=== PATIENT | female | born 1940 | race Caucasian/White ===

== ENCOUNTER 2025-01-16 13:00 | Inpatient (IN) | payer MEDICAID ==
[~2025-01-16] VITALS: Ht 152.4 cm; Wt 57.6 kg
[~2025-01-16 13:00] MED LIST: FURO20TA4 PO; GABA-529 PO; METO-539 PO; POLY17PO43 PO; SENN1TAB35 PO; WARF5TAB8 PO
[2025-01-16 13:27] VITALS: O2SAT 99
[2025-01-16 15:55] LABS: BASOPHILS % 0.2 % (0.0-2.0); EOSINOPHILS % 0.1 % (0.0-5.0); HEMATOCRIT. 33.9 % (36.0-48.0); HEMOGLOBIN. 11.1 g/dL (12.0-16.0); LYMPHOCYTES % 12.5 % (20.0-50.0); MEAN PLATELET VOLUME 8.6 fl (7.4-10.4); MONOCYTES % 9.3 % (2.0-8.0); NEUTROPHILS % 77.9 % (40.0-76.0); PLATELET 188 x1000/uL (130-400); RED BLOOD CELL COUNT 3.75 mill/uL (4.2-5.4); RED CELL DISTRIBUTION WIDTH 15.7 % (11.6-14.6)
[2025-01-16 16:08] LABS: CREATININE 0.8 mg/dL (0.6-1.0)
[2025-01-16 16:09] LABS: UREA NITROGEN BLOOD 11 mg/dL (9-23)
[2025-01-16 16:52] LABS: PROTEIN TOTAL 6.7 g/dL (6.0-8.3)
[2025-01-16 16:53] LABS: TROPONIN I HIGH SENSITIVITY 222 ng/L (3.0-34)
[2025-01-16 16:54] LABS: ASPARTATE AMINOTRANSFERASE 28 IU/L (<34); BILIRUBIN DIRECT 0.3 mg/dL (<=3.0); BILIRUBIN TOTAL 0.8 mg/dL (0.1-1.0)
[2025-01-16] MEDS ORDERED: POTASSIUM CHLORIDE 20MEQ TABLET SR PO PRN (20:45)
[2025-01-16] MEDS ORDERED: IPRATROPIUM/ALBUTEROL 0.5-3(2.5)MG/3ML NEB HHN PRN (20:45)
[2025-01-16] MEDS ORDERED: MAGNESIUM/ALUMINUM HYDROXIDE/SIMETHICONE 30ML UDC PO PRN (20:45)
[2025-01-16] MEDS ORDERED: CLONIDINE 0.1MG TABLET PO PRN (20:45)
[2025-01-16 20:46] LABS: GLUCOSE URINE NEGATIVE (NEGATIVE); KETONES URINE TRACE (NEGATIVE); LEUKOCYTE ESTERASE URINE TRACE (NEGATIVE); NITRITE URINE NEGATIVE (NEGATIVE); OCCULT BLOOD URINE TRACE (NEGATIVE); PH URINE 5.0 (4.5-8.0); PROTEIN URINE 1+ (NEGATIVE); SPECIFIC GRAVITY URINE 1.038 (1.005-1.030); UROBILINOGEN URINE 1.0 E.U./dL (0.2-1.0)
[2025-01-16] MEDS: HYDROCODONE/ACETAMINOPHEN 5/325MG TABLET PO PRN (21:41)
[2025-01-16 21:46] VITALS: BP 119/65; PULSE 86; RESP 18; TEMP 36.696
[2025-01-16 22:05] LABS: CLARITY URINE HAZY (CLEAR); COLOR URINE YELLOW (YELLOW)
[2025-01-16 22:06] LABS: RBC URINE NONE SEEN /hpf (0-2); WBC URINE 0-2 /hpf (0-2)
[2025-01-16 22:07] LABS: BACTERIA URINE 1+; CALCIUM OXALATE CRYSTALS URINE 1+ /lpf; SQUAMOUS EPITHELIAL CELL URINE 1+ /lpf (RARE/1+)
[2025-01-16 22:08] LABS: HYALINE CASTS URINE 0-5 /lpf; MUCUS URINE TRACE /lpf (< = 2+)
[2025-01-16 22:35] LABS: TROPONIN I HIGH SENSITIVITY 245 ng/L (3.0-34)
[2025-01-17] VITALS: BP 116/63; PULSE 63; RESP 18; TEMP 36.7; O2SAT 98
[2025-01-17 04:00] VITALS: BP 111/61; PULSE 62; RESP 18; TEMP 36.8; O2SAT 98
[2025-01-17 06:24] LABS: BASOPHILS % 0.3 % (0.0-2.0); EOSINOPHILS % 0.1 % (0.0-5.0); HEMATOCRIT. 29.5 % (36.0-48.0); HEMOGLOBIN. 9.9 g/dL (12.0-16.0); LYMPHOCYTES % 14.3 % (20.0-50.0); MEAN PLATELET VOLUME 9.2 fl (7.4-10.4); MONOCYTES % 9.0 % (2.0-8.0); NEUTROPHILS % 76.3 % (40.0-76.0); PLATELET 163 x1000/uL (130-400); RED BLOOD CELL COUNT 3.38 mill/uL (4.2-5.4); RED CELL DISTRIBUTION WIDTH 15.4 % (11.6-14.6)
[2025-01-17 06:34] LABS: CREATININE 0.7 mg/dL (0.6-1.0); UREA NITROGEN BLOOD 13 mg/dL (9-23)
[2025-01-17 06:36] LABS: PHOSPHORUS 2.9 mg/dL (2.5-4.9)
[2025-01-17 08:00] VITALS: BP 110/48; PULSE 77; RESP 18; TEMP 36.8; O2SAT 96
[2025-01-17] MEDS: ENOXAPARIN 40MG/0.4ML SYR SUBCUT SCH (09:02)
[2025-01-17 12:00] VITALS: BP 110/77; PULSE 73; RESP 18; TEMP 37.3; O2SAT 95
[2025-01-17 16:00] VITALS: BP 132/58; PULSE 69; RESP 16; TEMP 36.8; O2SAT 98
[2025-01-17 20:00] VITALS: BP 107/56; PULSE 83; RESP 20; TEMP 36.9; O2SAT 96
[2025-01-17] MEDS: CEFTRIAXONE 1GM/50ML 50 ML IV SCH (22:41)
[2025-01-17] MEDS: AZITHROMYCIN 500MG/250ML 250 ML IV SCH (23:36)
[2025-01-18] VITALS: BP 100/70; PULSE 80; RESP 20; TEMP 36.9; O2SAT 98
[2025-01-18] MEDS: MAGNESIUM 2 G PREMIX 50 ML IV NR (02:23)
[2025-01-18 04:00] VITALS: BP 108/77; PULSE 77; RESP 20; TEMP 36.9; O2SAT 98
[2025-01-18 06:44] LABS: UREA NITROGEN BLOOD 13 mg/dL (9-23)
[2025-01-18 06:45] LABS: CREATININE 0.7 mg/dL (0.6-1.0)
[2025-01-18 06:46] LABS: ASPARTATE AMINOTRANSFERASE 22 IU/L (<34); PROTEIN TOTAL 6.3 g/dL (6.0-8.3)
[2025-01-18 06:47] LABS: BILIRUBIN DIRECT 0.3 mg/dL (<=3.0); PHOSPHORUS 2.2 mg/dL (2.5-4.9)
[2025-01-18 06:48] LABS: BILIRUBIN TOTAL 0.8 mg/dL (0.1-1.0)
[2025-01-18 07:16] LABS: HEMATOCRIT. 30.9 % (36.0-48.0); HEMOGLOBIN. 10.3 g/dL (12.0-16.0); MEAN PLATELET VOLUME 9.6 fl (7.4-10.4); PLATELET 175 x1000/uL (130-400); RED BLOOD CELL COUNT 3.52 mill/uL (4.2-5.4); RED CELL DISTRIBUTION WIDTH 15.6 % (11.6-14.6)
[2025-01-18 08:00] VITALS: BP 103/60; PULSE 72; RESP 18; TEMP 37.8; O2SAT 96
[2025-01-18 08:28] LABS: INR 4.1
[2025-01-18 12:00] VITALS: BP 122/73; PULSE 62; RESP 18; TEMP 36.3; O2SAT 99
[2025-01-18] MEDS ORDERED: POLYETHYLENE GLYCOL 3350 (17GM) 1 DOSE PACK PO PRN (13:45)
[2025-01-18] MEDS ORDERED: NALOXONE HCL 0.4MG/ML VIAL IV PRN (14:15)
[2025-01-18 16:00] VITALS: BP 132/54; PULSE 63; RESP 18; TEMP 36.3; O2SAT 96
[2025-01-18 16:41] LABS: LYMPHOCYTES % MANUAL 7.0 % (20.0-60.0); MONOCYTES % MANUAL 2.0 % (2.0-8.0); NEUTROPHILS % MANUAL 91.0 % (45.0-75.0); PLATELET ESTIMATE NORMAL
[2025-01-18 20:00] VITALS: BP 107/52; PULSE 81; RESP 18; TEMP 36.5; O2SAT 95
[2025-01-18] MEDS ORDERED: SENNOSIDES/DOCUSATE SOD 8.6/50MG TABLET PO PRN (21:00)
[2025-01-18] MEDS: METOPROLOL TARTRATE 50MG TABLET PO SCH (21:00)
[2025-01-18] MEDS: FUROSEMIDE 20MG TABLET PO SCH (21:14)
[2025-01-18] MEDS: GABAPENTIN 100MG CAPSULE PO SCH (21:15)
[2025-01-18] MEDS: DOCUSATE SODIUM 100MG CAPSULE PO PRN (22:19)
[2025-01-19] VITALS: BP 110/59; PULSE 60; RESP 18; TEMP 36.4; O2SAT 99
[2025-01-19 03:25] LABS: CLARITY URINE CLEAR (CLEAR); COLOR URINE YELLOW (YELLOW); GLUCOSE URINE NEGATIVE (NEGATIVE); KETONES URINE NEGATIVE (NEGATIVE); LEUKOCYTE ESTERASE URINE NEGATIVE (NEGATIVE); NITRITE URINE NEGATIVE (NEGATIVE); OCCULT BLOOD URINE 1+ (NEGATIVE); PH URINE 5.0 (4.5-8.0); PROTEIN URINE NEGATIVE (NEGATIVE); SPECIFIC GRAVITY URINE 1.011 (1.005-1.030); UROBILINOGEN URINE 0.2 E.U./dL (0.2-1.0)
[2025-01-19 04:00] VITALS: BP 128/54; PULSE 55; RESP 18; TEMP 36.4; O2SAT 93
[2025-01-19 04:44] LABS: BACTERIA URINE TRACE; SQUAMOUS EPITHELIAL CELL URINE 1+ /lpf (RARE/1+)
[2025-01-19 04:45] LABS: FINE GRANULAR CASTS URINE 0-5 /lpf; RBC URINE 0-2 /hpf (0-2); WBC URINE NONE SEEN /hpf (0-2)
[2025-01-19 08:00] VITALS: BP 112/50; PULSE 59; RESP 18; TEMP 36.7; O2SAT 94
[2025-01-19] MEDS: ENOXAPARIN 30MG/0.3ML SYR SUBCUT SCH (09:04)
[2025-01-19 12:00] VITALS: BP 107/50; PULSE 71; RESP 18; TEMP 36.6; O2SAT 95
[2025-01-19 14:13] LABS: HEMATOCRIT. 30.7 % (36.0-48.0); HEMOGLOBIN. 10.1 g/dL (12.0-16.0); MEAN PLATELET VOLUME 9.6 fl (7.4-10.4); PLATELET 165 x1000/uL (130-400); RED BLOOD CELL COUNT 3.50 mill/uL (4.2-5.4); RED CELL DISTRIBUTION WIDTH 15.2 % (11.6-14.6)
[2025-01-19 14:23] LABS: CREATININE 0.8 mg/dL (0.6-1.0); UREA NITROGEN BLOOD 16 mg/dL (9-23)
[2025-01-19 14:24] LABS: PROTEIN TOTAL 6.0 g/dL (6.0-8.3)
[2025-01-19 14:25] LABS: ASPARTATE AMINOTRANSFERASE 35 IU/L (<34); PHOSPHORUS 2.6 mg/dL (2.5-4.9)
[2025-01-19 14:26] LABS: BILIRUBIN TOTAL 0.6 mg/dL (0.1-1.0); TROPONIN I HIGH SENSITIVITY 244 ng/L (3.0-34)
[2025-01-19 16:00] VITALS: BP 107/57; PULSE 81; RESP 18; TEMP 36.5; O2SAT 95
[2025-01-19 17:01] LABS: BAND% 1.0 % (1.0-6.0); EOSINOPHILS % MANUAL 1.0 % (0.0-5.0); LYMPHOCYTES % MANUAL 5.0 % (20.0-60.0); MONOCYTES % MANUAL 6.0 % (2.0-8.0); NEUTROPHILS % MANUAL 87.0 % (45.0-75.0); PLATELET ESTIMATE NORMAL
[2025-01-19] MEDS: VANCOMYCIN 750MG PREMIX 150 ML IV SCH (19:49)
[2025-01-19 20:00] VITALS: BP 105/52; PULSE 72; RESP 17; TEMP 36.4; O2SAT 96
[2025-01-19] MEDS: DOXYCYCLINE 100MG/100ML 100 ML IV SCH (22:42)
[2025-01-20] VITALS: BP 120/62; PULSE 87; RESP 19; TEMP 36.7; O2SAT 99
[2025-01-20] MEDS: ONDANSETRON HCL 4MG/2ML INJ IV PRN (00:02)
[2025-01-20 04:00] VITALS: PULSE 68; RESP 17; TEMP 36.6; O2SAT 99
[2025-01-20 08:00] VITALS: BP 112/64; PULSE 66; RESP 18; TEMP 36.6; O2SAT 97
[2025-01-20 08:50] LABS: INFLUENZA TYPE A Presumptive Negative (Pres. Neg.); INFLUENZA TYPE B Presumptive Negative (Pres. Neg.)
[2025-01-20 12:00] VITALS: BP 125/54; PULSE 62; RESP 18; TEMP 36.5; O2SAT 99
[2025-01-20 16:00] VITALS: BP 116/59; PULSE 61; RESP 18; TEMP 36.9; O2SAT 98
[2025-01-20 17:33] LABS: TRIGLYCERIDE 68.0 mg/dL (0-150)
[2025-01-20 17:34] LABS: LDL CHOLESTEROL 49.0 mg/dL (5-100)
[2025-01-20 17:35] LABS: CREATINE KINASE MB FRACTION < 0.5 ng/mL (0.5-3.6)
[2025-01-20 17:36] LABS: TROPONIN I HIGH SENSITIVITY 132 ng/L (3.0-34)
[2025-01-20 17:38] LABS: T4 FREE 1.39 ng/dL (0.89-1.76)
[2025-01-20 18:55] LABS: INR 1.6
[2025-01-20 20:00] VITALS: BP 113/45; PULSE 68; RESP 18; TEMP 36.5; O2SAT 94
[2025-01-20] MEDS: WARFARIN SODIUM 2.5MG TABLET PO SCH (21:09)
[2025-01-21] VITALS: BP 115/51; PULSE 60; RESP 18; TEMP 36.4; O2SAT 94
[2025-01-21 00:41] LABS: BASOPHILS % 0.7 % (0.0-2.0); EOSINOPHILS % 0.5 % (0.0-5.0); HEMATOCRIT. 31.0 % (36.0-48.0); HEMOGLOBIN. 10.1 g/dL (12.0-16.0); LYMPHOCYTES % 9.8 % (20.0-50.0); MEAN PLATELET VOLUME 9.3 fl (7.4-10.4); MONOCYTES % 8.3 % (2.0-8.0); NEUTROPHILS % 80.7 % (40.0-76.0); PLATELET 183 x1000/uL (130-400); RED BLOOD CELL COUNT 3.51 mill/uL (4.2-5.4); RED CELL DISTRIBUTION WIDTH 15.2 % (11.6-14.6)
[2025-01-21 00:55] LABS: CREATINE KINASE MB FRACTION < 0.5 ng/mL (0.5-3.6)
[2025-01-21 01:03] LABS: TROPONIN I HIGH SENSITIVITY 121 ng/L (3.0-34)
[2025-01-21 04:00] VITALS: BP 105/57; PULSE 60; RESP 17; TEMP 36.6; O2SAT 96
[2025-01-21 08:09] LABS: BASOPHILS % 0.2 % (0.0-2.0); EOSINOPHILS % 0.7 % (0.0-5.0); HEMATOCRIT. 29.6 % (36.0-48.0); HEMOGLOBIN. 9.8 g/dL (12.0-16.0); LYMPHOCYTES % 12.0 % (20.0-50.0); MEAN PLATELET VOLUME 9.2 fl (7.4-10.4); MONOCYTES % 8.8 % (2.0-8.0); NEUTROPHILS % 78.3 % (40.0-76.0); PLATELET 195 x1000/uL (130-400); RED BLOOD CELL COUNT 3.39 mill/uL (4.2-5.4); RED CELL DISTRIBUTION WIDTH 15.2 % (11.6-14.6)
[2025-01-21 08:10] VITALS: BP 104/62; PULSE 66; RESP 18; TEMP 36.8; O2SAT 97
[2025-01-21 08:22] LABS: CREATININE 0.7 mg/dL (0.6-1.0)
[2025-01-21 08:23] LABS: UREA NITROGEN BLOOD 16 mg/dL (9-23)
[2025-01-21 08:25] LABS: CREATINE KINASE MB FRACTION < 0.5 ng/mL (0.5-3.6)
[2025-01-21 08:28] LABS: TROPONIN I HIGH SENSITIVITY 102 ng/L (3.0-34)
[2025-01-21 08:37] LABS: INR 1.4
[2025-01-21] MEDS: POLYETHYLENE GLYCOL 3350 (17GM) 1 DOSE PACK PO SCH (08:59)
[2025-01-21] MEDS: ENOXAPARIN 60MG/0.6ML SYR SUBCUT SCH (10:05)
[2025-01-21] MEDS ORDERED: BACLOFEN 10MG TABLET PO PRN (11:00)
[2025-01-21] MEDS: LIDOCAINE 5% PATCH TOP SCH (11:45)
[2025-01-21 12:10] VITALS: BP 118/54; PULSE 66; RESP 18; TEMP 36.6; O2SAT 97
[2025-01-21 16:30] VITALS: BP 110/48; PULSE 64; RESP 18; TEMP 38.2; O2SAT 96
[2025-01-21] MEDS: GUAIFENESIN-DM 200MG-20MG/10ML UDC PO PRN (17:19)
[2025-01-21] MEDS: BENZONATATE 100MG CAPSULE PO PRN (17:19)
[2025-01-21] MEDS: ACETAMINOPHEN 325MG TABLET PO PRN (17:19)
[2025-01-21] MEDS ORDERED: WARFARIN SODIUM 5MG TABLET PO SCH (18:00)
[2025-01-21 20:00] VITALS: BP 125/99; PULSE 59; RESP 16; TEMP 35.9; O2SAT 97
[2025-01-22] VITALS: BP 123/50; PULSE 59; RESP 16; TEMP 36.6; O2SAT 96
[2025-01-22 04:00] VITALS: BP 121/65; PULSE 59; RESP 16; TEMP 35.8; O2SAT 95
[2025-01-22 08:04] VITALS: BP 116/64; PULSE 60; RESP 18; TEMP 36.8; O2SAT 95
[2025-01-22 08:23] LABS: BASOPHILS % 0.2 % (0.0-2.0); EOSINOPHILS % 0.5 % (0.0-5.0); HEMATOCRIT. 29.3 % (36.0-48.0); HEMOGLOBIN. 9.9 g/dL (12.0-16.0); LYMPHOCYTES % 7.8 % (20.0-50.0); MEAN PLATELET VOLUME 9.3 fl (7.4-10.4); MONOCYTES % 7.4 % (2.0-8.0); NEUTROPHILS % 84.1 % (40.0-76.0); PLATELET 201 x1000/uL (130-400); RED BLOOD CELL COUNT 3.38 mill/uL (4.2-5.4); RED CELL DISTRIBUTION WIDTH 15.3 % (11.6-14.6)
[2025-01-22 08:29] LABS: INR 1.3
[2025-01-22 09:02] LABS: CREATININE 0.7 mg/dL (0.6-1.0)
[2025-01-22 09:04] LABS: UREA NITROGEN BLOOD 18 mg/dL (9-23)
[2025-01-22 12:10] VITALS: BP 104/56; PULSE 60; RESP 18; TEMP 36.6; O2SAT 98
[2025-01-22 16:10] VITALS: BP 128/66; PULSE 62; RESP 18; TEMP 36.4; O2SAT 99
[2025-01-22] MEDS: VANCOMYCIN 1G PREMIX 200 ML IV SCH (17:35)
[2025-01-22 20:00] VITALS: BP 114/48; PULSE 66; RESP 17; TEMP 36.5; O2SAT 99
[2025-01-23] VITALS: BP 152/62; PULSE 60; RESP 18; TEMP 36.6; O2SAT 99
[2025-01-23 04:00] VITALS: BP 134/55; PULSE 60; RESP 18; TEMP 36.5; O2SAT 99
[2025-01-23 06:49] LABS: BASOPHILS % 0.4 % (0.0-2.0); EOSINOPHILS % 0.4 % (0.0-5.0); HEMATOCRIT. 29.6 % (36.0-48.0); HEMOGLOBIN. 10.0 g/dL (12.0-16.0); LYMPHOCYTES % 13.8 % (20.0-50.0); MEAN PLATELET VOLUME 9.1 fl (7.4-10.4); MONOCYTES % 7.7 % (2.0-8.0); NEUTROPHILS % 77.7 % (40.0-76.0); PLATELET 232 x1000/uL (130-400); RED BLOOD CELL COUNT 3.44 mill/uL (4.2-5.4); RED CELL DISTRIBUTION WIDTH 15.0 % (11.6-14.6)
[2025-01-23 07:00] LABS: INR 1.2
[2025-01-23 07:32] LABS: CREATININE 0.6 mg/dL (0.6-1.0)
[2025-01-23 07:33] LABS: UREA NITROGEN BLOOD 16 mg/dL (9-23)
[2025-01-23 08:00] VITALS: BP 132/53; PULSE 61; RESP 18; TEMP 36.6; O2SAT 99
[2025-01-23 12:00] VITALS: BP 126/44; PULSE 61; RESP 18; TEMP 36.6; O2SAT 97
[2025-01-23 16:00] VITALS: BP 121/52; PULSE 64; RESP 18; TEMP 36.6; O2SAT 97
[2025-01-23 20:00] VITALS: BP 133/67; PULSE 78; RESP 18; TEMP 37.1; O2SAT 97
[2025-01-24] VITALS: BP 128/60; RESP 20; TEMP 36.9; O2SAT 98
[2025-01-24 04:00] VITALS: BP 139/66; PULSE 82; RESP 18; TEMP 36.9; O2SAT 98
[2025-01-24 08:00] VITALS: BP 133/69; PULSE 57; RESP 13; TEMP 36.7; O2SAT 99
[2025-01-24 08:23] LABS: CREATININE 0.6 mg/dL (0.6-1.0); UREA NITROGEN BLOOD 13 mg/dL (9-23)
[2025-01-24 08:29] LABS: BASOPHILS % 0.2 % (0.0-2.0); EOSINOPHILS % 0.2 % (0.0-5.0); HEMATOCRIT. 30.0 % (36.0-48.0); HEMOGLOBIN. 10.2 g/dL (12.0-16.0); INR 1.1; LYMPHOCYTES % 11.7 % (20.0-50.0); MEAN PLATELET VOLUME 8.4 fl (7.4-10.4); MONOCYTES % 10.3 % (2.0-8.0); NEUTROPHILS % 77.6 % (40.0-76.0); PLATELET 244 x1000/uL (130-400); RED BLOOD CELL COUNT 3.47 mill/uL (4.2-5.4); RED CELL DISTRIBUTION WIDTH 15.0 % (11.6-14.6)
[2025-01-24] MEDS ORDERED: LIDOCAINE HCL 1% 10 MG/ML 10ML VIAL ONE (10:17)
[2025-01-24 12:00] VITALS: BP 121/88; PULSE 69; RESP 15; TEMP 36.8; O2SAT 97
[2025-01-24 16:00] VITALS: BP 130/74; PULSE 76; RESP 14; TEMP 36.7; O2SAT 98
[2025-01-24 20:00] VITALS: BP 142/81; PULSE 97; RESP 20; TEMP 36.8; O2SAT 99
[2025-01-25] VITALS: BP 139/80; PULSE 82; RESP 20; TEMP 37; O2SAT 97
[2025-01-25 04:00] VITALS: BP_SYST 138; BP_SYST 143; BP_DIAS 63; BP_DIAS 77; PULSE 89; PULSE 90; RESP 20; TEMP 36.9; TEMP 37; O2SAT 98
[2025-01-25 08:00] VITALS: BP 138/64; PULSE 58; RESP 17; TEMP 36.6; O2SAT 97
[2025-01-25] MEDS ORDERED: TETRACAINE/BENZOCAINE/BUTAMBEN 20 GM SPRAY MM ONE (10:31)
[2025-01-25] MEDS ORDERED: LIDOCAINE 2% 6ML GLYDO ONE (10:33)
[2025-01-25] MEDS ORDERED: FENTANYL CITRATE/PF 50MCG/ML 2ML VIAL ONE (14:02)
[2025-01-25] MEDS ORDERED: MIDAZOLAM HCL 2 MG/2 ML VIAL ONE ×2 (14:02→14:44)
[2025-01-25 16:00] VITALS: BP 131/63; PULSE 60; RESP 20; TEMP 36.6; O2SAT 99
[2025-01-25 20:00] VITALS: BP_SYST 120; BP_DIAS 50; BP_DIAS 7; PULSE 60; RESP 20; TEMP 36.5; O2SAT 99
[2025-01-26] VITALS: BP 124/49; PULSE 61; RESP 19; TEMP 36.4; O2SAT 19
[2025-01-26 04:00] VITALS: BP 105/63; PULSE 70; RESP 19; TEMP 36.5; O2SAT 100
[2025-01-26 08:00] VITALS: BP 127/51; PULSE 59; RESP 18; TEMP 36.7; O2SAT 98
[2025-01-26 12:00] VITALS: BP 154/58; PULSE 60; RESP 18; TEMP 36.7; O2SAT 98
[2025-01-26 13:01] LABS: CREATININE 0.6 mg/dL (0.6-1.0); UREA NITROGEN BLOOD 9 mg/dL (9-23)
[2025-01-26] MEDS ORDERED: LIDOCAINE 2% 6ML GLYDO ONE (13:39)
[2025-01-26] MEDS ORDERED: TETRACAINE/BENZOCAINE/BUTAMBEN 20 GM SPRAY MM ONE (13:40)
[2025-01-26] MEDS ORDERED: MIDAZOLAM HCL 2 MG/2 ML VIAL ONE (13:54)
[2025-01-26] MEDS ORDERED: ONDANSETRON HCL 4MG/2ML INJ ONE (13:54)
[2025-01-26] MEDS ORDERED: FENTANYL CITRATE/PF 50MCG/ML 2ML VIAL ONE (13:54)
[2025-01-26 16:00] VITALS: BP 109/50; PULSE 59; RESP 18; TEMP 36.5; O2SAT 97
[2025-01-26 17:29] LABS: BASOPHILS % 0.5 % (0.0-2.0); EOSINOPHILS % 0.4 % (0.0-5.0); HEMATOCRIT. 32.1 % (36.0-48.0); HEMOGLOBIN. 10.8 g/dL (12.0-16.0); LYMPHOCYTES % 14.3 % (20.0-50.0); MEAN PLATELET VOLUME 8.5 fl (7.4-10.4); MONOCYTES % 9.4 % (2.0-8.0); NEUTROPHILS % 75.4 % (40.0-76.0); PLATELET 264 x1000/uL (130-400); RED BLOOD CELL COUNT 3.69 mill/uL (4.2-5.4); RED CELL DISTRIBUTION WIDTH 15.0 % (11.6-14.6)
[2025-01-26] MEDS: LACTULOSE ENEMA 1,000ML BOTTLE PR NR (17:54)
[2025-01-26 20:00] VITALS: BP 122/58; PULSE 62; RESP 18; TEMP 36.7; O2SAT 95
[2025-01-27] VITALS: BP 112/56; PULSE 60; RESP 18; TEMP 36.4; O2SAT 96
[2025-01-27 04:00] VITALS: BP 111/48; PULSE 61; RESP 18; TEMP 36.4; O2SAT 95
[2025-01-27 08:00] VITALS: BP 113/44; PULSE 61; RESP 18; TEMP 36.7; O2SAT 96
[2025-01-27 12:00] VITALS: BP 104/50; PULSE 60; RESP 18; TEMP 36.5; O2SAT 97
[2025-01-27 16:00] VITALS: BP 121/52; PULSE 60; RESP 18; TEMP 36.6; O2SAT 98
[2025-01-27 20:00] VITALS: BP 111/52; PULSE 61; RESP 18; TEMP 36.4; O2SAT 95
[2025-01-28] VITALS: BP 133/54; PULSE 63; RESP 19; TEMP 36.4; O2SAT 98
[2025-01-28 04:00] VITALS: BP 124/59; PULSE 68; RESP 18; TEMP 36.6; O2SAT 97
[2025-01-28 08:00] VITALS: BP 127/50; PULSE 63; RESP 17; TEMP 36.4; O2SAT 100
[2025-01-28 12:00] VITALS: BP 133/52; PULSE 60; RESP 18; TEMP 36.5; O2SAT 98
[2025-01-28 16:00] VITALS: BP 124/50; PULSE 60; RESP 17; TEMP 36.6; O2SAT 97
[2025-01-28 20:00] VITALS: BP 116/86; PULSE 60; RESP 16; TEMP 36.2; O2SAT 97
[2025-01-29] VITALS: BP 148/59; PULSE 62; RESP 16; TEMP 36.7; O2SAT 98
[2025-01-29 04:00] VITALS: BP 159/69; PULSE 65; RESP 16; TEMP 36.9; O2SAT 98
[2025-01-29 08:00] VITALS: BP 114/76; PULSE 65; RESP 18; TEMP 37.3; O2SAT 96
[2025-01-29 12:00] VITALS: BP 124/52; PULSE 64; RESP 18; TEMP 36.8; O2SAT 97
[2025-01-29 14:19] LABS: CREATININE 0.6 mg/dL (0.6-1.0)
[2025-01-29 14:21] LABS: UREA NITROGEN BLOOD 9 mg/dL (9-23)
[2025-01-29] MEDS: POTASSIUM CHLORIDE 20MEQ TABLET SR PO SCH (15:37)
[2025-01-29 16:00] VITALS: BP 139/57; PULSE 78; RESP 18; TEMP 36.6; O2SAT 97
[2025-01-29 20:00] VITALS: BP 127/89; PULSE 65; RESP 18; TEMP 36.2; O2SAT 98
[2025-01-30] VITALS: BP 130/59; PULSE 61; RESP 18; TEMP 36.1; O2SAT 97
[2025-01-30 04:00] VITALS: BP 137/61; PULSE 61; RESP 17; TEMP 36.3; O2SAT 99
[2025-01-30 08:00] VITALS: BP 150/58; PULSE 63; RESP 18; TEMP 36.5; O2SAT 96
[2025-01-30 12:00] VITALS: BP 137/66; PULSE 60; RESP 17; TEMP 36.3; O2SAT 97
[2025-01-30 16:00] VITALS: BP 146/69; PULSE 59; RESP 17; TEMP 36.7; O2SAT 95
[2025-01-30 20:00] VITALS: BP 137/54; PULSE 61; RESP 18; TEMP 36; O2SAT 98
[2025-01-31] VITALS: BP 130/59; RESP 18; TEMP 36.4
[2025-01-31 04:00] VITALS: BP 149/59; PULSE 60; RESP 18; TEMP 36.6; O2SAT 97
[2025-01-31 08:00] VITALS: BP 151/60; PULSE 60; RESP 17; TEMP 36.4; O2SAT 99
[2025-01-31 12:00] VITALS: BP 121/61; PULSE 75; RESP 18; TEMP 36.4; O2SAT 97
[2025-01-31 16:00] VITALS: BP 126/53; PULSE 61; RESP 19; TEMP 36.3; O2SAT 94
[2025-01-31 20:00] VITALS: BP 120/56; PULSE 60; RESP 18; TEMP 36.4; O2SAT 97
[2025-02-01] VITALS: BP 117/51; PULSE 60; RESP 18; TEMP 36.5; O2SAT 98
[2025-02-01 04:00] VITALS: BP 118/58; PULSE 62; RESP 18; TEMP 36.3; O2SAT 99
[2025-02-01 08:00] VITALS: PULSE 61; RESP 16; TEMP 36.6
[2025-02-01 12:00] VITALS: BP 116/54; PULSE 61; RESP 16; TEMP 36.3; O2SAT 96
[2025-02-01 16:00] VITALS: BP 101/65; PULSE 61; RESP 16; TEMP 36.4; O2SAT 98
[2025-02-01 20:00] VITALS: BP 110/34; PULSE 62; RESP 18; TEMP 36.4; O2SAT 98
[2025-02-02] VITALS: BP 122/55; PULSE 60; RESP 18; TEMP 36.6; O2SAT 100
[2025-02-02 04:00] VITALS: BP 116/53; PULSE 66; RESP 17; TEMP 36.4; O2SAT 99
[2025-02-02 08:00] VITALS: BP 131/58; PULSE 60; RESP 16; TEMP 36.7; O2SAT 96
[2025-02-02 11:49] LABS: CREATININE 0.7 mg/dL (0.6-1.0); UREA NITROGEN BLOOD 6 mg/dL (9-23)
[2025-02-02 12:00] VITALS: BP 122/56; PULSE 62; RESP 16; TEMP 36.3; O2SAT 97
[2025-02-02] MEDS: POTASSIUM CHLORIDE 20MEQ TABLET SR PO SCH (12:15)
[2025-02-02] MEDS: KCL 20MEQ/100ML PREMIX 100 ML IV SCH (13:37)
[2025-02-02 16:00] VITALS: BP 146/62; PULSE 64; RESP 16; TEMP 36.7; O2SAT 100
== END 2025-02-02 19:15 | disposition left against medical advice (07) | DRG 720 ==
LOC: ER 13:00 → EDBEDREQ 18:15 → EDBEDREQTM 19:45 → 8WST 20:34 → 8EST 01-28 18:32
PROVIDERS: ADMIT Family Medicine Adult Medicine; ATTEND Family Medicine Adult Medicine
PROC: 5A09357 Assistance with Respiratory Ventilation, Less than 24 Consecutive Hours, Continuous Positive Airway Pressure (ICD-10-PCS; 2025-01-22)
PROC: 05HM33Z Insertion of Infusion Device into Right Internal Jugular Vein, Percutaneous Approach (ICD-10-PCS; 2025-01-24)
PROC: B543ZZA Ultrasonography of Right Jugular Veins, Guidance (ICD-10-PCS; 2025-01-24)
PROC: B24BZZ4 Ultrasonography of Heart with Aorta, Transesophageal (ICD-10-PCS; principal; 2025-01-26)
DX: A41.1 Sepsis due to other specified staphylococcus (principal); I33.0 Acute and subacute infective endocarditis; J96.00 Acute respiratory failure, unspecified whether with hypoxia or hypercapnia; J18.9 Pneumonia, unspecified organism; Z79.01 Long term (current) use of anticoagulants; I27.20 Pulmonary hypertension, unspecified; I11.0 Hypertensive heart disease with heart failure; J45.909 Unspecified asthma, uncomplicated; I37.1 Nonrheumatic pulmonary valve insufficiency; I08.1 Rheumatic disorders of both mitral and tricuspid valves; Z95.2 Presence of prosthetic heart valve; E83.42 Hypomagnesemia; I48.91 Unspecified atrial fibrillation; R79.1 Abnormal coagulation profile; Z86.718 Personal history of other venous thrombosis and embolism; Z95.0 Presence of cardiac pacemaker
CPT/HCPCS: 36415; 36573; 71045; 74018; 80048; 80053; 80061; 80076; 80202; 81003; 82550; 82553; 82962; 83036; 83605; 83735; 83880; 84100; 84145; 84439; 84443; 84484; 85025; 85379; 87077; 87186; 87804; 93005; 93306; 93312; 93970; 97162; 97530; 99285; A4606; C1725; J0456; J0696; J1650; J2003; J2250; J2405; J3010; J3373; J3475; J3480; J3490